=== PATIENT | male | born 2000 | race African-American/Black ===

== ENCOUNTER 2022-12-25 23:42 | Emergency (ER) | payer BC ==
[~2022-12-25] VITALS: Ht 185.4 cm; Wt 70.3 kg
[2022-12-25 23:50] VITALS: BP_SYST 152; PULSE 95; RESP 16; TEMP 97.9; O2SAT 100
[2022-12-26] MEDS ORDERED: CORTEARS RIGHT EAR (00:16)
[2022-12-26] MEDS ORDERED: AMOX500C2 PO (00:16)
[2022-12-26 00:37] VITALS: BP_SYST 138; PULSE 80; RESP 16; TEMP 97.9; O2SAT 95
== END 2022-12-26 00:37 | disposition home or self-care (01) ==
LOC: SED 23:42
DX: H66.91 Otitis media, unspecified, right ear (principal); H92.01 Otalgia, right ear; R51.9 Headache, unspecified; R09.81 Nasal congestion; Z79.899 Other long term (current) drug therapy
CPT/HCPCS: 99283